=== PATIENT | female | born 1980 | race Two or more races ===

== ENCOUNTER 2016-11-21 12:54 | Emergency (ER) | payer MEDICAID ==
[~2016-11-21] VITALS: Ht 157.5 cm; Wt 81.9 kg
[2016-11-21 14:33] LABS: CALCIUM 8.9 mg/dL (8.5-10.1); CARBON DIOXIDE 28.7 mmol/L (21-32); CHLORIDE SERUM 106 mmol/L (98-107); CREATININE SERUM 0.6 mg/dL (0.6-1.0); GFR1 > 60 mL/min; GLUCOSE SERUM 96 mg/dL (74-106); POTASSIUM SERUM 3.5 mmol/L (3.5-5.1); SODIUM SERUM 141 mmol/L (136-145)
[2016-11-21 14:37] LABS: BASOPHIL % 0.7 % (0-2); PLATELET COUNT 319 x10^3mcL (130-400); RED CELL DISTRIBUTION WIDTH 13.5 % (11.5-14.5)
[2016-11-21 14:40] LABS: ALBUMIN 3.4 g/dL (3.4-5.0); ALKALINE PHOSPHATASE 62 U/L (46-116); ALT/SGPT 50 U/L (14-59); AST/SGOT 21 U/L (15-37); TOTAL PROTEIN, SERUM 7.4 g/dL (6.4-8.2)
[2016-11-21 15:30] VITALS: BP 112/73
[2016-11-21 15:38] LABS: AMPHETAMINE QUAL UR NONE DETECTED (NEG <=1000)
== END 2016-11-21 15:35 | disposition home or self-care (01) ==
LOC: ED 12:54
PROVIDERS: Emergency Medicine
DX: R07.89 Other chest pain (principal); M79.671 Pain in right foot; M79.672 Pain in left foot; F41.9 Anxiety disorder, unspecified
CPT/HCPCS: 36415; 83880; Q0092

== ENCOUNTER 2017-10-01 22:46 | Emergency (ER) | payer MEDICAID ==
[~2017-10-01] VITALS: Ht 160 cm; Wt 81.2 kg
[2017-10-01 22:53] VITALS: Ht 160 cm; Wt 81.2 kg
[2017-10-02 00:15] VITALS: BP 138/69
== END 2017-10-02 00:15 | disposition home or self-care (01) ==
LOC: ED 22:46
DX: H92.03 Otalgia, bilateral (principal); J02.9 Acute pharyngitis, unspecified
CPT/HCPCS: Q0163

== ENCOUNTER 2017-11-29 19:26 | Emergency (ER) | payer MEDICAID ==
[~2017-11-29] VITALS: Ht 154.9 cm; Wt 82.1 kg
[2017-11-29 19:33] VITALS: BP 125/74; Ht 154.9 cm; Wt 82.1 kg
== END 2017-11-29 20:40 | disposition left against medical advice (07) ==
LOC: ED 19:26
DX: Z53.21 Procedure and treatment not carried out due to patient leaving prior to being seen by health care provider (principal)

== ENCOUNTER 2018-05-02 08:38 | Emergency (ER) | payer MEDICAID ==
[~2018-05-02] VITALS: Ht 152.4 cm; Wt 79.4 kg
[2018-05-02 08:39] VITALS: Ht 152.4 cm; Wt 79.4 kg
[2018-05-02 09:31] LABS: BASOPHIL % 1.1 % (0-2); PLATELET COUNT 270 x10^3mcL (130-400)
[2018-05-02 09:54] LABS: CALCIUM 9.1 mg/dL (8.5-10.1); CARBON DIOXIDE 28.6 mmol/L (21-32); CHLORIDE SERUM 103 mmol/L (98-107); CREATININE SERUM 0.6 mg/dL (0.6-1.0); GFR1 > 60 mL/min; GLUCOSE SERUM 96 mg/dL (74-106); POTASSIUM SERUM 3.7 mmol/L (3.5-5.1); SODIUM SERUM 138 mmol/L (136-145)
[2018-05-02 09:59] LABS: ALBUMIN 3.5 g/dL (3.4-5.0); ALKALINE PHOSPHATASE 45 U/L (46-116); ALT/SGPT 7 U/L (14-59); AST/SGOT 11 U/L (15-37); BILIRUBIN TOTAL 0.25 mg/dL (0.20-1.00); TOTAL PROTEIN, SERUM 7.8 g/dL (6.4-8.2)
[2018-05-02 12:25] VITALS: BP 116/72
== END 2018-05-02 12:18 | disposition home or self-care (01) ==
LOC: ED 08:38
PROVIDERS: Emergency Medicine
DX: D25.9 Leiomyoma of uterus, unspecified (principal); R10.31 Right lower quadrant pain; N83.201 Unspecified ovarian cyst, right side
CPT/HCPCS: 36415; J1885

== ENCOUNTER 2018-06-08 12:14 | Emergency (ER) | payer MEDICAID ==
[~2018-06-08] VITALS: Ht 154.9 cm; Wt 77.3 kg
[2018-06-08 12:24] VITALS: BP 125/87; Ht 154.9 cm; Wt 77.3 kg
== END 2018-06-08 13:05 | disposition home or self-care (01) ==
LOC: ED 12:14
DX: D25.9 Leiomyoma of uterus, unspecified (principal); N92.0 Excessive and frequent menstruation with regular cycle

== ENCOUNTER 2019-02-15 20:53 | Emergency (ER) | payer MEDICAID ==
[~2019-02-15] VITALS: Ht 160 cm; Wt 80.1 kg
[2019-02-15 20:58] VITALS: Ht 160 cm; Wt 80.1 kg
[2019-02-15 22:37] LABS: BASOPHIL % 0.6 % (0-2); PLATELET COUNT 242 x10^3mcL (130-400); RED CELL DISTRIBUTION WIDTH 12.8 % (11.5-14.5)
[2019-02-15 22:53] LABS: CALCIUM 8.1 mg/dL (8.5-10.1); CARBON DIOXIDE 20.2 mmol/L (21-32); CHLORIDE SERUM 105 mmol/L (98-107); CREATININE SERUM 0.6 mg/dL (0.6-1.0); GFR1 > 60 mL/min; GLUCOSE SERUM 147 mg/dL (74-106); POTASSIUM SERUM 3.4 mmol/L (3.5-5.1); SODIUM SERUM 137 mmol/L (136-145)
[2019-02-15 22:58] LABS: ALBUMIN 2.8 g/dL (3.4-5.0); ALKALINE PHOSPHATASE 59 U/L (46-116); ALT/SGPT 24 U/L (14-59); AST/SGOT 9 U/L (15-37); BILIRUBIN TOTAL 0.18 mg/dL (0.20-1.00); TOTAL PROTEIN, SERUM 6.2 g/dL (6.4-8.2)
[2019-02-15 23:12] LABS: UA SPECIFIC GRAVITY >=1.030 (1.005-1.035); microscopic required? YES; urine erythrocyte 3+ (NEGATIVE)
[2019-02-16 00:20] VITALS: BP 107/68
== END 2019-02-16 00:20 | disposition home or self-care (01) ==
LOC: ED 20:53
PROVIDERS: Specialist
DX: N92.0 Excessive and frequent menstruation with regular cycle (principal); D64.9 Anemia, unspecified; D25.9 Leiomyoma of uterus, unspecified; R42 Dizziness and giddiness
CPT/HCPCS: J7030; Q0092

== ENCOUNTER 2019-05-23 01:34 | Emergency (ER) | payer MEDICAID ==
[~2019-05-23] VITALS: Ht 154.9 cm; Wt 81.6 kg
[2019-05-23 01:51] VITALS: Ht 154.9 cm; Wt 81.6 kg
[2019-05-23 03:07] LABS: CALCIUM 9.3 mg/dL (8.5-10.1); CHLORIDE SERUM 105 mmol/L (98-107); CREATININE SERUM 0.6 mg/dL (0.6-1.0); GFR1 > 60 mL/min; GLUCOSE SERUM 139 mg/dL (74-106); POTASSIUM SERUM 3.8 mmol/L (3.5-5.1); SODIUM SERUM 138 mmol/L (136-145)
[2019-05-23 03:11] LABS: ALBUMIN 3.5 g/dL (3.4-5.0); ALKALINE PHOSPHATASE 71 U/L (46-116); ALT/SGPT 29 U/L (14-59); AST/SGOT 17 U/L (15-37); BILIRUBIN TOTAL 0.13 mg/dL (0.20-1.00); LIPASE 123 IU/L (73-393); TOTAL PROTEIN, SERUM 7.3 g/dL (6.4-8.2)
[2019-05-23 03:53] VITALS: BP 113/58
== END 2019-05-23 03:54 | disposition home or self-care (01) ==
LOC: ED 01:34
PROVIDERS: Emergency Medicine
DX: R10.13 Epigastric pain (principal); R11.0 Nausea
CPT/HCPCS: 36415

== ENCOUNTER 2020-03-28 05:59 | Emergency (ER) | payer MEDICAID ==
[~2020-03-28] VITALS: Ht 152.4 cm; Wt 90.7 kg
[~2020-03-28 05:59] MED LIST: VENTOLIN H0.09 MG/A1 IH
[2020-03-28 07:50] VITALS: BP 119/74; Ht 152.4 cm; Wt 90.7 kg
== END 2020-03-28 09:00 | disposition home or self-care (01) ==
LOC: ED 05:59
DX: O26.892 Other specified pregnancy related conditions, second trimester (principal); R10.2 Pelvic and perineal pain; R30.0 Dysuria; Z3A.20 20 weeks gestation of pregnancy; Z98.890 Other specified postprocedural states